=== PATIENT | female | born 1965 | race Caucasian/White ===

== ENCOUNTER → 2019-08-02 14:05 | Outpatient (CLI) | payer OTHER, SELFPAY ==
--- NOTE | ~2019-08-02 | US_ITS ---
EXAMINATION: US transvaginal DATE: 08/02/2019 14:27 INDICATION: Verify IUD placement TECHNIQUE: Multiple endovaginal sonographic images of the pelvis were obtained. COMPARISON: None. FINDINGS: The uterus measures 7.9 x 4.2 x 4.7 cm. The endometrial complex measures 9 mm in thickness. Linear e chogenic and shadowing IUD in expected position within the endometrial canal. The right ovary measure s 2.3 x 2.8 x 2.8 cm. 2.7 x 2.2 x 2.4 cm anechoic cyst in the right ovary. The left ovary measures 2. 2 x 1.3 x 2.0 cm. Vascular flow identified at both ovaries on color Doppler. There is no free fluid i n the pelvis. IMPRESSION: 1. IUD in expected position within the endometrial canal. Reviewed, dictated and finalized at location [facility]
== END ==
PROVIDERS: Visit Provider Nurse Practitioner
DX: Z30.431 Encounter for routine checking of intrauterine contraceptive device (principal)
CPT/HCPCS: 76830

== ENCOUNTER 2023-04-28 06:06 | Day surgery (SDC) | payer OTHER, SELFPAY ==
[2023-03-14 14:34] VITALS: BMI 38.6
[2023-04-08 12:54] VITALS: BMI 37.5
--- NOTE | 2023-04-25 13:12 | PM.HPGS ---
History of Present Illness History of Present Illness Consent: Risks, benefits, and alternatives have been discussed and questions answered. Patient agrees to proceed with procedure. Chief complaint: Dysphagia Narrative: Naye Cash is a 57 year old female with dysphagia.Visually increasingly frequent episodes of food getting caught during a meal. She also has had acid reflux. One night a couple months ago it was so severe resulting in burning in in her chest which prompted her to call her physician. She was then started on omeprazole in place of the [id number] preparations that she had been using. Since then her acid reflux is much better and the episodes of dysphagia are Less frequent. She did have esophageal dilatation about 10 years ago. Review of Systems Review of Systems: All systems reviewed & are unremarkable except as noted in HPI and below PMFSH Past Medical History Medical History GERD (gastroesophageal reflux disease) Hyperlipidemia Hypertension Family History Family History Mother Family history of obesity Family history of cataracts Family history of hearing loss Father Family history of glaucoma Family history of cataracts Family history of chronic obstructive pulmonary disease Family history of congestive heart failure Family history of heart disease in male family member before age 55 Family history of hearing loss Social History Social History Smoking status: Never smoker Alcohol intake: never Substance use: never Substance use type: does not use Living arrangements: with family Spiritual care concerns: No Meds Home Medications and Allergies Home Medications Medication Instructions Recorded Confirmed Type atorvastatin 10 mg tablet 10 mg PO DAILY 04/08/23 04/28/23 History cabergoline 0.5 mg tablet 0.5 mg PO 2XW 04/08/23 04/28/23 History famotidine 40 mg tablet 40 mg PO DAILY 04/08/23 04/28/23 History lisinopril 20 1 tablet PO DAILY 04/08/23 04/28/23 History mg-hydrochlorothiazide 12.5 mg tablet metformin 500 mg tablet,extended 500 mg PO DAILY 04/08/23 04/28/23 History release 24 hr omeprazole 40 mg capsule,delayed 40 mg PO DAILY 04/08/23 04/28/23 History release rosuvastatin 5 mg tablet 5 mg PO DAILY 04/08/23 04/28/23 History semaglutide 0.25 mg or 0.5 mg (2 0.5 mg subcut WEEKLY 04/08/23 04/28/23 History mg/3 mL) subcutaneous pen injector ([email or web address]) verapamil 180 mg tablet,extended 180 mg PO DAILY 04/08/23 04/28/23 History release Allergies Allergy/AdvReac Type Severity Reaction Status Date / Time No Known Allergies Allergy Verified 04/28/23 06:43 Exam Const: General: alert Orientation/consciousness: patient oriented x3 Resp: Auscultation: clear to auscultation bilaterally Cardio: Rhythm: regular rhythm GI: GI Palp: Yes Soft to palpation and No Tenderness to palpation present (GI) Neuro: General: patient oriented x3 Assessment and Plan Assessment and plan (1) Dysphagia: Code(s): R13.10 - Dysphagia, unspecified Status: Acute Assessment and Plan: EGD with possible biopsy or dilatation or cautery.
--- NOTE | 2023-04-28 06:50 | P.PNAN_ITS ---
Anes - Initial Pre Proc Eval Procedure: Operation Date: 04/28/23 08:00 Proposed Procedures p Esophagogastroduodenoscopy - Fan Osborn MD Date/Time: 04/28/23 06:50 Surgeon: Fan Osborn MD Pre Op Diagnosis: Dysphagia Patient Data Age: 57 Gender: F Height: 1.6 m Weight: 96 kg Allergies Allergy/AdvReac Type Severity Reaction Status Date / Time No Known Allergies Allergy Verified 04/28/23 06:43 Home Medications Medication Instructions Recorded Confirmed Type atorvastatin 10 mg tablet 10 mg PO DAILY 04/08/23 04/28/23 History cabergoline 0.5 mg tablet 0.5 mg PO 2XW 04/08/23 04/28/23 History famotidine 40 mg tablet 40 mg PO DAILY 04/08/23 04/28/23 History lisinopril 20 1 tablet PO DAILY 04/08/23 04/28/23 History mg-hydrochlorothiazide 12.5 mg tablet metformin 500 mg tablet,extended 500 mg PO DAILY 04/08/23 04/28/23 History release 24 hr omeprazole 40 mg capsule,delayed 40 mg PO DAILY 04/08/23 04/28/23 History release rosuvastatin 5 mg tablet 5 mg PO DAILY 04/08/23 04/28/23 History semaglutide 0.25 mg or 0.5 mg (2 0.5 mg subcut WEEKLY 04/08/23 04/28/23 History mg/3 mL) subcutaneous pen injector (Ozempic) verapamil 180 mg tablet,extended 180 mg PO DAILY 04/08/23 04/28/23 History release Patient hx anesthesia problems: none Family hx anesthesia problems: none Results Review: All pre-operative results and documents have been reviewed as part of the pre- operative evaluation. [facility] Past Medical History Medical History (Updated 04/28/23 @ 08:10 by Osiel Archibald DO) Diabetes type 2, controlled GERD (gastroesophageal reflux disease) Hyperlipidemia Hypertension Family History Family History Mother Family history of obesity Family history of cataracts Family history of hearing loss Father Family history of glaucoma Family history of cataracts Family history of chronic obstructive pulmonary disease Family history of congestive heart failure Family history of heart disease in male family member before age 55 Family history of hearing loss Social History Social History Smoking status: Never smoker Alcohol intake: never Substance use: never Substance use type: does not use Living arrangements: with family Spiritual care concerns: No Anes - Eval Final PreProcedure Day of Procedure 04/28/23 06:50 Patient weight: obese Heart: regular rate and rhythm Lungs: clear to auscultation Airway: Mallampati scale class II Neurological: alert and oriented Last oral intake: >/= 8 hours ASA classification: III Emergent: no Anesthetic plan: proceed Anesthesia type and monitoring: general GIVS and standard monitoring Results Review: All pre-operative results and documents have been reviewed as part of the pre- operative evaluation. Informed Consent: The patient's anesthetic plan and its attendant risks and benefits were discussed with the patient/family/POA. Questions were solicited and answers provided to the satisfaction of the patient/family/POA.
[2023-04-28 06:53] VITALS: BP 123/77; PULSE 72; RESP 16; TEMP 36.6; O2SAT 96
[2023-04-28] MEDS: LACTATED RINGERS 1,000 ML 150 ML IV CONT (06:54)
[2023-04-28 06:59] LABS: Glucose Point of Care 102 mg/dl (65-105)
[2023-04-28 07:58] VITALS: BP 119/73; PULSE 72; RESP 16; O2SAT 94
[2023-04-28 08:08] VITALS: BP 116/80; PULSE 62; RESP 16; O2SAT 97
[2023-04-28 08:18] VITALS: BP 117/81; PULSE 63; RESP 16; O2SAT 99
--- NOTE | 2023-04-28 13:45 | WPDANESPN ---
Anes - Prog Note Post-Op Date/Time: 04/28/23 13:45 Cardiovascular status: normal Respiratory status: normal Airway patency: baseline Mental status: baseline Post-Op hydration status: normal Vital Signs: Last Vital Signs Temp 36.6 C 04/28/23 06:53 Pulse 63 04/28/23 08:18 Resp 16 04/28/23 08:18 BP 117/81 04/28/23 08:18 Pulse Ox 99 04/28/23 08:18 O2 Del Method Room Air 04/28/23 08:18 Pain Score (VAS): 0 I/O: Intake & Output 04/27/23 04/28/23 04/28/23 23:59 07:59 15:59 Intake Total 200 100 Balance 200 100 04/28/23 06:57 POC Capillary Glucose 102 Post-procedural complaints: none Patient Feedback: Patient satisfied with anesthetic care. Other Findings: Patient vital signs back to baseline. Patient denies nausea and vomiting. Patient's pain under control. Patient OK for discharge.
== END 2023-04-28 08:30 | disposition home or self-care (01) ==
PROVIDERS: PCP Nurse Practitioner Family; Visit Provider Internal Medicine Gastroenterology
PROC: 0DJ08ZZ Inspection of Upper Intestinal Tract, Via Natural or Artificial Opening Endoscopic (ICD-10-PCS; CPT 43235; principal; 2023-04-28 08:00)
DX: R13.19 Other dysphagia (principal); K22.2 Esophageal obstruction
CPT/HCPCS: 43249; 43239

== ENCOUNTER 2023-04-28 07:00 | Outpatient (NON) | payer OTHER, SELFPAY | END 2023-04-28 07:01 | disposition home or self-care (01) | PROVIDERS: PCP Nurse Practitioner Family; Visit Provider Internal Medicine Gastroenterology | DX: R13.10 Dysphagia, unspecified (principal) | CPT/HCPCS: 88305 ==